=== PATIENT | female | born 1990 | race African-American/Black ===

== ENCOUNTER 2018-11-16 19:10 | Emergency (ER) | payer MEDICAID ==
[~2018-11-16] VITALS: Ht 170.2 cm; Wt 79.0 kg
[2018-11-16 19:20] VITALS: BP 139/100
== END 2018-11-16 23:45 | disposition left against medical advice (07) ==
LOC: ER 20:00
DX: Z53.21 Procedure and treatment not carried out due to patient leaving prior to being seen by health care provider (principal)